=== PATIENT | male | born 1945 | race Caucasian/White ===

== ENCOUNTER 2020-02-11 14:21 | Emergency (ER) | payer MEDICARE ==
[~2020-02-11] VITALS: Ht 172.7 cm; Wt 74.8 kg
[2020-02-11 14:44] VITALS: Ht 172.7 cm; Wt 74.8 kg
[2020-02-11 17:37] VITALS: BP 180/97
== END 2020-02-11 17:37 | disposition home or self-care (01) ==
LOC: ED 14:21
DX: S61.217A Laceration without foreign body of left little finger without damage to nail, initial encounter (principal); X58.XXXA Exposure to other specified factors, initial encounter; Y93.89 Activity, other specified; Y92.89 Other specified places as the place of occurrence of the external cause; Y99.8 Other external cause status
CPT/HCPCS: 90715; J0690; Q0092

== ENCOUNTER 2020-02-23 09:33 | Emergency (ER) | payer MEDICARE ==
[~2020-02-23] VITALS: Ht 172.7 cm; Wt 75.3 kg
[2020-02-23 09:37] VITALS: BP 173/78; Ht 172.7 cm; Wt 75.3 kg
== END 2020-02-23 10:19 | disposition home or self-care (01) ==
LOC: ED 09:33
DX: S61.217D Laceration without foreign body of left little finger without damage to nail, subsequent encounter (principal); I10 Essential (primary) hypertension; E11.9 Type 2 diabetes mellitus without complications; X58.XXXD Exposure to other specified factors, subsequent encounter